=== PATIENT | female | born 1950 | race Caucasian/White ===

== ENCOUNTER → 2017-01-03 | Outpatient (CLI) | payer MEDICARE, OTHER ==
[~2017-01-03] MED LIST: ASPIRIN E.C. 8181 MG PO; DROXIA200 MG; LEXAPRO20 MG PO; NORCO 325 MG-51 TAB PO; OCUFLOX OPHTH DR5 ML OU; ZITHROMAX Z PA250 MG PO
== END ==
LOC: MC.RAD 09:39
DX: Z12.31 Encounter for screening mammogram for malignant neoplasm of breast (principal)

== ENCOUNTER → 2017-10-24 | Outpatient (CLI) | payer MEDICARE, OTHER ==
[2017-10-24 09:49] LABS: MEAN CELL VOLUME 114 fl (80.0-100.0); MEAN CORPUSCULAR HGB CONC 33 g/dl (33.0-37.0); PLATELET COUNT 184 K/mm3 (130-400); REDCELL DISTRIBUTION WIDTH-CV 12.9 % (11.5-14.5)
[2017-10-24 09:50] LABS: HEMATOCRIT 26.3 % (37.0-47.0); HEMOGLOBIN 8.7 g/dl (12.5-16.0); MEAN CORPUSCULAR HEMOGLOBIN 38 pg (27.0-31.0)
[2017-10-24 10:58] LABS: BAND 24 % (0-10); BASOPHIL 1 % (0-2); EOSINOPHIL 1 % (0-4); LYMPHOCYTE 3 % (20.0-51.0); NEUTROPHILS 68 % (42.0-75.2)
[2017-10-24 10:59] LABS: PLATELET ESTIMATE NORMAL (NORMAL)
[2017-10-24 11:00] LABS: ANISOCYTOSIS 2+; HYPOCHROMIA 2+; POLYCHROMASIA 1+
[2017-10-24 11:01] LABS: TEAR DROP CELLS 1+
== END ==
LOC: COL.LAB 09:21
DX: D47.1 Chronic myeloproliferative disease (principal); D75.1 Secondary polycythemia

== ENCOUNTER → 2017-11-07 | Outpatient (CLI) | payer MEDICARE, OTHER ==
[2017-11-07 09:47] LABS: MEAN CELL VOLUME 115 fl (80.0-100.0); MEAN CORPUSCULAR HGB CONC 32 g/dl (33.0-37.0); MEAN PLATELET VOLUME 10.3 fl (7.4-10.4); PLATELET COUNT 178 K/mm3 (130-400); RED BLOOD COUNT 2.19 M/mm3 (4.10-5.30); REDCELL DISTRIBUTION WIDTH-CV 13.8 % (11.5-14.5)
[2017-11-07 09:51] LABS: HEMATOCRIT 25.1 % (37.0-47.0); MEAN CORPUSCULAR HEMOGLOBIN 37 pg (27.0-31.0)
[2017-11-07 10:37] LABS: BAND 11 % (0-10); LYMPHOCYTE 10 % (20.0-51.0); NEUTROPHILS 79 % (42.0-75.2); PLATELET ESTIMATE NORMAL (NORMAL)
[2017-11-07 10:38] LABS: STOMATOCYTE 1+; TARGET CELLS 2+
[2017-11-07 10:40] LABS: OVALOCYTES 1+; POIKILOCYTOSIS 1+
== END ==
LOC: COL.LAB 09:00
DX: D47.1 Chronic myeloproliferative disease (principal); D75.1 Secondary polycythemia

== ENCOUNTER → 2017-11-18 | Outpatient (CLI) | payer MEDICARE, OTHER ==
[2017-11-18 09:22] LABS: MEAN CELL VOLUME 110 fl (80.0-100.0); MEAN CORPUSCULAR HGB CONC 33 g/dl (33.0-37.0); MEAN PLATELET VOLUME 10.3 fl (7.4-10.4); PLATELET COUNT 181 K/mm3 (130-400); RED BLOOD COUNT 2.21 M/mm3 (4.10-5.30); REDCELL DISTRIBUTION WIDTH-CV 14.6 % (11.5-14.5)
[2017-11-18 09:23] LABS: HEMATOCRIT 24.3 % (37.0-47.0); HEMOGLOBIN 7.9 g/dl (12.5-16.0); MEAN CORPUSCULAR HEMOGLOBIN 36 pg (27.0-31.0)
[2017-11-18 11:05] LABS: BAND 14 % (0-10); LYMPHOCYTE 15 % (20.0-51.0); NEUTROPHILS 70 % (42.0-75.2); PLATELET ESTIMATE NORMAL (NORMAL); POLYCHROMASIA 1+
== END ==
LOC: COL.LAB 08:53
PROVIDERS: Internal Medicine Hematology & Oncology
DX: D47.1 Chronic myeloproliferative disease (principal); D75.1 Secondary polycythemia

== ENCOUNTER → 2017-11-29 | Outpatient (CLI) | payer MEDICARE, OTHER ==
[2017-11-29 09:20] LABS: MEAN CELL VOLUME 107 fl (80.0-100.0); MEAN CORPUSCULAR HGB CONC 32 g/dl (33.0-37.0); MEAN PLATELET VOLUME 10.1 fl (7.4-10.4); PLATELET COUNT 192 K/mm3 (130-400); RED BLOOD COUNT 2.39 M/mm3 (4.10-5.30)
[2017-11-29 09:25] LABS: HEMATOCRIT 25.5 % (37.0-47.0); HEMOGLOBIN 8.1 g/dl (12.5-16.0); MEAN CORPUSCULAR HEMOGLOBIN 34 pg (27.0-31.0)
[2017-11-29 09:45] LABS: BAND 16 % (0-10); LYMPHOCYTE 9 % (20.0-51.0); MYELOCYTE 4 % (0-0); NEUTROPHILS 71 % (42.0-75.2); NUCLEATED RED BLOOD CELL 2 (0-6); PLATELET ESTIMATE NORMAL (NORMAL)
[2017-11-29 09:46] LABS: TEAR DROP CELLS 1+
[2017-11-29 09:47] LABS: POLYCHROMASIA 1+
== END ==
LOC: COL.LAB 08:55
PROVIDERS: Internal Medicine Hematology & Oncology
DX: D47.1 Chronic myeloproliferative disease (principal); D75.1 Secondary polycythemia

== ENCOUNTER → 2017-12-27 | Outpatient (CLI) | payer MEDICARE, OTHER ==
[2017-12-27 10:11] LABS: MEAN CELL VOLUME 99 fl (80.0-100.0); MEAN CORPUSCULAR HGB CONC 31 g/dl (33.0-37.0); PLATELET COUNT 256 K/mm3 (130-400); REDCELL DISTRIBUTION WIDTH-CV 15.5 % (11.5-14.5)
[2017-12-27 10:13] LABS: HEMATOCRIT 28.8 % (37.0-47.0); HEMOGLOBIN 8.9 g/dl (12.5-16.0); MEAN CORPUSCULAR HEMOGLOBIN 31 pg (27.0-31.0)
[2017-12-27 10:29] LABS: BAND 17 % (0-10); LYMPHOCYTE 4 % (20.0-51.0); MYELOCYTE 3 % (0-0); NEUTROPHILS 70 % (42.0-75.2); PLATELET ESTIMATE NORMAL (NORMAL)
[2017-12-27 10:30] LABS: ANISOCYTOSIS 1+
[2017-12-27 10:31] LABS: OVALOCYTES 1+; POLYCHROMASIA 1+; TEAR DROP CELLS 2+
[2017-12-27 10:32] LABS: STOMATOCYTE 1+
[2017-12-30 07:56] LABS: PATHOLOGY DIFF REVIEW OK
== END ==
LOC: COL.LAB 08:46
PROVIDERS: Internal Medicine Hematology & Oncology
DX: D47.1 Chronic myeloproliferative disease (principal); D75.1 Secondary polycythemia

== ENCOUNTER → 2018-01-10 | Outpatient (CLI) | payer MEDICARE, OTHER ==
[2018-01-10 09:32] LABS: MEAN CELL VOLUME 96 fl (80.0-100.0); MEAN CORPUSCULAR HGB CONC 31 g/dl (33.0-37.0); PLATELET COUNT 195 K/mm3 (130-400); RED BLOOD COUNT 2.77 M/mm3 (4.10-5.30); REDCELL DISTRIBUTION WIDTH-CV 16.1 % (11.5-14.5)
[2018-01-10 09:34] LABS: HEMATOCRIT 26.6 % (37.0-47.0); HEMOGLOBIN 8.3 g/dl (12.5-16.0); MEAN CORPUSCULAR HEMOGLOBIN 30 pg (27.0-31.0)
[2018-01-10 09:47] LABS: ANISOCYTOSIS 1+; BAND 34 % (0-10); HYPOCHROMIA 2+; LYMPHOCYTE 13 % (20.0-51.0); NEUTROPHILS 51 % (42.0-75.2); PLATELET ESTIMATE NORMAL (NORMAL)
[2018-01-10 09:48] LABS: STOMATOCYTE 1+
[2018-01-10 09:51] LABS: TEAR DROP CELLS 2+
== END ==
LOC: COL.LAB 08:55
PROVIDERS: Internal Medicine Hematology & Oncology
DX: D47.1 Chronic myeloproliferative disease (principal); D75.1 Secondary polycythemia

== ENCOUNTER → 2018-01-15 | Outpatient (CLI) | payer MEDICARE, OTHER | LOC: MC.RAD 09:52 | DX: Z12.31 Encounter for screening mammogram for malignant neoplasm of breast (principal) ==

== ENCOUNTER → 2018-01-24 | Outpatient (CLI) | payer MEDICARE, OTHER ==
[2018-01-24 09:15] LABS: MEAN CELL VOLUME 93 fl (80.0-100.0); MEAN CORPUSCULAR HGB CONC 31 g/dl (33.0-37.0); MEAN PLATELET VOLUME 9.8 fl (7.4-10.4); PLATELET COUNT 159 K/mm3 (130-400); RED BLOOD COUNT 2.95 M/mm3 (4.10-5.30); REDCELL DISTRIBUTION WIDTH-CV 16.8 % (11.5-14.5)
[2018-01-24 09:19] LABS: HEMATOCRIT 27.3 % (37.0-47.0); HEMOGLOBIN 8.5 g/dl (12.5-16.0); MEAN CORPUSCULAR HEMOGLOBIN 29 pg (27.0-31.0)
[2018-01-24 09:48] LABS: BAND 5 % (0-10); BASOPHIL 1 % (0-2); EOSINOPHIL 1 % (0-4); LYMPHOCYTE 7 % (20.0-51.0); METAMYELOCYTE 2 % (0-0); NEUTROPHILS 78 % (42.0-75.2)
[2018-01-24 09:49] LABS: ANISOCYTOSIS 1+
[2018-01-24 09:51] LABS: HYPOCHROMIA 1+
[2018-01-24 09:55] LABS: TEAR DROP CELLS 1+
[2018-01-24 09:56] LABS: POLYCHROMASIA 1+
== END ==
LOC: COL.LAB 08:48
PROVIDERS: Internal Medicine Hematology & Oncology
DX: D47.1 Chronic myeloproliferative disease (principal); D75.1 Secondary polycythemia

== ENCOUNTER → 2018-02-12 | Outpatient (CLI) | payer MEDICARE, OTHER ==
[2018-02-12 09:28] LABS: MEAN CELL VOLUME 90 fl (80.0-100.0); MEAN CORPUSCULAR HGB CONC 32 g/dl (33.0-37.0); MEAN PLATELET VOLUME 10.8 fl (7.4-10.4); PLATELET COUNT 164 K/mm3 (130-400); RED BLOOD COUNT 3.09 M/mm3 (4.10-5.30); REDCELL DISTRIBUTION WIDTH-CV 17.1 % (11.5-14.5)
[2018-02-12 09:29] LABS: HEMATOCRIT 27.9 % (37.0-47.0); HEMOGLOBIN 8.8 g/dl (12.5-16.0); MEAN CORPUSCULAR HEMOGLOBIN 28 pg (27.0-31.0)
[2018-02-12 10:22] LABS: BAND 42 % (0-10); EOSINOPHIL 1 % (0-4); LYMPHOCYTE 11 % (20.0-51.0); METAMYELOCYTE 1 % (0-0); NEUTROPHILS 43 % (42.0-75.2)
[2018-02-12 10:23] LABS: ANISOCYTOSIS 1+; HYPOCHROMIA 1+; PLATELET ESTIMATE NORMAL (NORMAL); POIKILOCYTOSIS 1+
[2018-02-12 10:24] LABS: TEAR DROP CELLS 1+
== END ==
LOC: COL.LAB 08:55
PROVIDERS: Internal Medicine Hematology & Oncology
DX: D47.1 Chronic myeloproliferative disease (principal); D75.1 Secondary polycythemia

== ENCOUNTER → 2018-03-05 | Outpatient (CLI) | payer MEDICARE, OTHER ==
[2018-03-05 09:38] LABS: HEMATOCRIT 30.6 % (37.0-47.0); HEMOGLOBIN 9.5 g/dl (12.5-16.0); MEAN CELL VOLUME 91 fl (80.0-100.0); MEAN CORPUSCULAR HEMOGLOBIN 28 pg (27.0-31.0); MEAN CORPUSCULAR HGB CONC 31 g/dl (33.0-37.0); MEAN PLATELET VOLUME 9.4 fl (7.4-10.4); PLATELET COUNT 140 K/mm3 (130-400); RED BLOOD COUNT 3.37 M/mm3 (4.10-5.30); REDCELL DISTRIBUTION WIDTH-CV 18.8 % (11.5-14.5)
[2018-03-05 09:59] LABS: BAND 13 % (0-10); LYMPHOCYTE 5 % (20.0-51.0); MYELOCYTE 3 % (0-0); NEUTROPHILS 75 % (42.0-75.2)
[2018-03-05 10:00] LABS: POLYCHROMASIA 1+; STOMATOCYTE 1+; TARGET CELLS 2+
[2018-03-05 10:01] LABS: PLATELET ESTIMATE DECREASED (NORMAL)
== END ==
LOC: COL.LAB 08:54
PROVIDERS: Internal Medicine Hematology & Oncology
DX: D47.1 Chronic myeloproliferative disease (principal); D75.1 Secondary polycythemia

== ENCOUNTER → 2018-05-05 | Outpatient (CLI) | payer MEDICARE, OTHER ==
[2018-05-05 08:54] LABS: MEAN CELL VOLUME 91 fl (80.0-100.0); MEAN CORPUSCULAR HGB CONC 32 g/dl (33.0-37.0); MEAN PLATELET VOLUME 9.6 fl (7.4-10.4); PLATELET COUNT 51 K/mm3 (130-400); RED BLOOD COUNT 2.75 M/mm3 (4.10-5.30); REDCELL DISTRIBUTION WIDTH-CV 18.6 % (11.5-14.5)
[2018-05-05 09:06] LABS: HEMATOCRIT 25.1 % (37.0-47.0); HEMOGLOBIN 7.9 g/dl (12.5-16.0); MEAN CORPUSCULAR HEMOGLOBIN 29 pg (27.0-31.0)
[2018-05-05 09:40] LABS: ANISOCYTOSIS 1+; BAND 7 % (0-10); EOSINOPHIL 1 % (0-4); LYMPHOCYTE 5 % (20.0-51.0); METAMYELOCYTE 1 % (0-0); MYELOCYTE 3 % (0-0); NEUTROPHILS 74 % (42.0-75.2); PLATELET ESTIMATE DECREASED (NORMAL)
[2018-05-05 09:41] LABS: TEAR DROP CELLS 1+
== END ==
LOC: COL.LAB 08:24
PROVIDERS: Internal Medicine Hematology & Oncology
DX: D47.1 Chronic myeloproliferative disease (principal); D75.1 Secondary polycythemia; G93.2 Benign intracranial hypertension